=== PATIENT | male | born 2000 | race Caucasian/White ===

== ENCOUNTER 2023-04-07 11:29 | Emergency (ER) | payer OTHER ==
[~2023-04-07] VITALS: Ht 182.9 cm; Wt 117.5 kg
[2023-04-07 11:33] VITALS: BP 160/110; PULSE 134; RESP 18; TEMP 99; O2SAT 97
[2023-04-07] MEDS ORDERED: NACL 0.9% 2,000 ML IV ONE (11:45)
[2023-04-07 11:49] VITALS: BP 166/113; PULSE 116; RESP 16
[2023-04-07 12:11] VITALS: O2SAT 95
[2023-04-07 12:18] VITALS: O2SAT 97
[2023-04-07 12:31] LABS: BASOPHILS % (AUTO) 0.2 % (0.0-2.0); EOSINOPHILS % (AUTO) 0.1 % (0.0-4.0); HEMOGLOBIN 16.2 g/dL (12.0-18.0); LYMPHOCYTES # (AUTO) 0.7 K/uL (2.0-11.5); LYMPHOCYTES % (AUTO) 5.5 % (20.5-51.1); MEAN CORPUSCULAR HEMOGLOBIN 29 pg (27-31); MEAN CORPUSCULAR HGB CONC 34 g/dL (33-37); MEAN CORPUSCULAR VOLUME 86.2 fL (80-94); MONOCYTES # (AUTO) 0.4 K/uL (0.8-1.0); MONOCYTES % (AUTO) 3.6 % (1.7-9.3); NEUTROPHILS # (AUTO) 10.9 K/uL (1.8-7.7); NEUTROPHILS % (AUTO) 90.6 % (42.2-75.2); PLATELET COUNT (AUTO) 301 K/uL (140-450); RED BLOOD CELL COUNT(AUTO) 5.57 MIL/uL (4.20-6.10); RED CELL DISTRIBUTION WIDTH 14.4 % (11.6-13.7)
[2023-04-07] MEDS ORDERED: ONDANSETRON 4 MG/2 ML VIAL IVP ONE (12:50)
[2023-04-07 13:03] LABS: ALBUMIN 4.2 g/dL (3.4-5.0); ANION GAP 15.4 (8-16); CALCIUM 9.5 mg/dL (8.5-10.1); POTASSIUM 3.4 mmol/L (3.5-5.1); TOTAL BILIRUBIN 0.4 mg/dL (0.0-1.0); TOTAL PROTEIN, SERUM 8.9 g/dL (6.4-8.2)
[2023-04-07] MEDS ORDERED: ONDA-188 SL (13:17)
== END 2023-04-07 13:58 | disposition home or self-care (01) ==
LOC: MED 11:29
DX: R11.2 Nausea with vomiting, unspecified (principal); R19.7 Diarrhea, unspecified; R10.9 Unspecified abdominal pain; Z88.8 Allergy status to other drugs, medicaments and biological substances; Z79.899 Other long term (current) drug therapy
CPT/HCPCS: 36415; 80053; 83690; 85025; 96361; 96374; 99291; J2405; J7030; 99283

== ENCOUNTER 2023-10-24 10:57 | Emergency (ER) | payer OTHER ==
[~2023-10-24] VITALS: Ht 182.9 cm; Wt 117.9 kg
[~2023-10-24 10:57] MED LIST: ONDA-188 SL
[2023-10-24 11:09] VITALS: BP 163/105; PULSE 98; RESP 18; TEMP 98.2; O2SAT 99
== END 2023-10-24 11:54 | disposition home or self-care (01) ==
LOC: MED 10:57
DX: S93.491A Sprain of other ligament of right ankle, initial encounter (principal); Z79.899 Other long term (current) drug therapy; X58.XXXA Exposure to other specified factors, initial encounter; Y93.89 Activity, other specified; Y92.89 Other specified places as the place of occurrence of the external cause; Y99.8 Other external cause status
CPT/HCPCS: 73610; 99283